=== PATIENT | female | born 1950 | race Caucasian/White ===

== ENCOUNTER 2017-05-17 09:00 | Inpatient (IN) | payer MEDICARE, MEDICAID ==
[~2017-05-17] VITALS: Ht 162.6 cm; Wt 89.5 kg
[2017-05-17] MEDS ORDERED: SODIUM CHLORIDE 0.9% 1,000 ML IV ONE ×2 (12:30→16:45)
[2017-05-17 13:00] LABS: HEMATOCRIT 24.3 % (36-46); HEMOGLOBIN 7.3 g/dL (12.0-16.0); MEAN CORPUSCULAR HEMOGLOBIN 18.6 pg (26.0-34.0); MEAN CORPUSCULAR HGB CONC 30.1 G/dL (31.0-37.0); MEAN CORPUSCULAR VOLUME 62 fL (80-100); PLATELET COUNT (AUTO) 250 K/uL (150-450); RED BLOOD CELL COUNT(AUTO) 3.94 MIL/uL (4.00-5.20); RED CELL DISTRIBUTION WIDTH 22.5 % (11.5-14.5)
[2017-05-17 13:19] LABS: B-TYPE NATRIURETIC PEPTIDE 66 pg/mL (0-100)
[2017-05-17 13:31] LABS: BAND NEUTROPHILS % (MANUAL) 9 % (1-5); LYMPHOCYTES % (MANUAL) 5 % (22-44); MONOCYTES % (MANUAL) 1 % (2-9); SEGMENTED NEUTROPHILS % 85 % (40-70)
[2017-05-17 13:32] LABS: ANION GAP 11 mmol/L (8-16); CALCIUM, TOTAL 8.4 mg/dL (8.8-10.5); CARBON DIOXIDE 22 mmol/L (22-29); CHLORIDE 97 mmol/L (98-107); GLOMERULAR FILTR. RATE CALC > 60 mL/min (>60); GLUCOSE,RANDOM 129 mg/dL (70-110); POTASSIUM 3.8 mmol/L (3.5-5.1); SODIUM SERUM 130 mmol/L (136-145); UREA NITROGEN, BLOOD 13 mg/dL (7-18)
[2017-05-17 13:36] LABS: ALANINE AMINOTRANSFERASE 95 U/L (12-78); ALBUMIN 2.2 g/dL (3.4-5.0); ALKALINE PHOSPHATASE 946 U/L (46-116); ASPARTATE AMINOTRANSFERASE 222 U/L (15-37); BILIRUBIN,TOTAL 5.4 mg/dL (0.1-1.0); TOTAL PROTEIN, SERUM 6.6 g/dL (6.4-8.2)
[2017-05-17 16:29] LABS: APPEARANCE,URINE CLOUDY (CLEAR); GLUCOSE, URINE (UA) NEGATIVE (NEGATIVE); KETONES,URINE 15 mg/dL (NEGATIVE); LEUKOCYTE ESTERASE ,URINE LARGE (NEGATIVE); NITRATE,URINE POSITIVE (NEGATIVE); OCCULT BLOOD,URINE NEGATIVE (NEGATIVE); PROTEIN,URINE NEGATIVE (NEGATIVE)
[2017-05-17 16:39] LABS: BILIRUBIN,URINE PRELIM. POSITIVE (NEGATIVE)
[2017-05-17 16:42] LABS: BACTERIA,URINE Many /HPF (None Seen)
[2017-05-17 16:43] LABS: RBC,URINE 0-2 /HPF (0-2)
[2017-05-17 16:44] LABS: SQUAMOUS EPITHELIAL CELL,UR Moderate /LPF (None Seen); TRANSITIONAL EPI CELLS,URINE Few /LPF (None Seen)
[2017-05-17] MEDS ORDERED: 0.9% SODIUM CHLORIDE 10 ML SYRINGE IVP PRN (16:45)
[2017-05-17] MEDS ORDERED: ONDANSETRON HCL 4 MG/2 ML VIAL IVP PRN (16:45)
[2017-05-17 17:03] LABS: INR 1.1 (0.9-1.1); PROTHROMBIN TIME 11.6 SEC (9.4-11.6)
[2017-05-17] MEDS ORDERED: CefTRIAXone 1 GM/DEXTROSE 50 ML IV ONE (18:00)
[2017-05-17 18:29] VITALS: BP 147/75
[2017-05-17] MEDS ORDERED: SODIUM CHLORIDE 0.9% 250 ML IV ONE (20:03)
[2017-05-17] MEDS: ACETAMINOPHEN 325 MG TABLET PO PRN (20:23)
[2017-05-17 21:24] VITALS: BP 132/78
[2017-05-18] VITALS (17 sets, daily range): BP systolic 126–150; BP diastolic 72–87
[2017-05-18] MEDS: ACETAMINOPHEN 325 MG TABLET PO PRN (02:15)
[2017-05-18 08:16] LABS: C-REACTIVE PROTEIN QUANT 15.12 mg/dL (0.00-0.30)
[2017-05-18 08:45] LABS: HEMATOCRIT 22.1 % (36-46); MEAN CORPUSCULAR HEMOGLOBIN 18.7 pg (26.0-34.0); MEAN CORPUSCULAR HGB CONC 30.7 G/dL (31.0-37.0); MEAN CORPUSCULAR VOLUME 61 fL (80-100); PLATELET COUNT (AUTO) 241 K/uL (150-450); RED BLOOD CELL COUNT(AUTO) 3.64 MIL/uL (4.00-5.20)
[2017-05-18 08:52] LABS: HEMOGLOBIN 6.8 g/dL (12.0-16.0)
[2017-05-18 08:59] LABS: PHOSPHORUS 2.8 mg/dL (2.5-4.9)
[2017-05-18 09:03] LABS: HEMOGLOBIN A1C 4.6 % (4.5-6.2)
[2017-05-18 09:11] LABS: CHOL/HDL RATIO 36.6 (3.9-5.7)
[2017-05-18 09:29] LABS: ERYTHROCYTE SEDIMENTATION RATE 52 MM/HR (0-20)
[2017-05-18 09:34] LABS: EOSINOPHILS % (MANUAL) 2 % (1-6); LYMPHOCYTES % (MANUAL) 6 % (22-44); MONOCYTES % (MANUAL) 6 % (2-9); SEGMENTED NEUTROPHILS % 86 % (40-70)
[2017-05-18] MEDS: PANTOPRAZOLE SODIUM 40 MG DR TABLET PO SCH (09:46)
[2017-05-18 09:48] LABS: INR 1.1 (0.9-1.1)
[2017-05-18] MEDS ORDERED: IOVERSOL 350 MG/ML 100 ML VIAL ONE (11:41)
[2017-05-18] MEDS: CefTRIAXone 1 GM/DEXTROSE 50 ML IV SCH (16:00)
[2017-05-18 16:01] LABS: % IRON SATURATION 5.2 % (22-44)
[2017-05-18] MEDS: OxyCODONE HCL 5 MG IR TABLET PO PRN (23:23)
[2017-05-19] VITALS (7 sets, daily range): BP systolic 122–149; BP diastolic 69–85
[2017-05-19 06:23] LABS: INR 1.1 (0.9-1.1)
[2017-05-19 06:56] LABS: ALANINE AMINOTRANSFERASE 81 U/L (12-78); ALBUMIN 1.7 g/dL (3.4-5.0); ALKALINE PHOSPHATASE 859 U/L (46-116); AMYLASE 18 U/L (25-115); ANION GAP 9 mmol/L (8-16); ASPARTATE AMINOTRANSFERASE 188 U/L (15-37); BILIRUBIN,TOTAL 7.3 mg/dL (0.1-1.0); CALCIUM, TOTAL 8.2 mg/dL (8.8-10.5); CARBON DIOXIDE 24 mmol/L (22-29); CHLORIDE 99 mmol/L (98-107); CREATININE 0.53 mg/dL (0.60-1.30); GLOMERULAR FILTR. RATE CALC > 60 mL/min (>60); GLUCOSE,RANDOM 85 mg/dL (70-110); PHOSPHORUS 3.3 mg/dL (2.5-4.9); POTASSIUM 3.8 mmol/L (3.5-5.1); SODIUM SERUM 132 mmol/L (136-145); TOTAL PROTEIN, SERUM 5.7 g/dL (6.4-8.2); UREA NITROGEN, BLOOD 11 mg/dL (7-18)
[2017-05-19] MEDS: CefTRIAXone 1 GM/DEXTROSE 50 ML IV SCH (09:25)
[2017-05-19] MEDS ORDERED: GADOBUTROL 1 MMOL/ML 10 ML VIAL IVP ONE (09:40)
[2017-05-19] MEDS: PANTOPRAZOLE SODIUM 40 MG DR TABLET PO SCH (11:16)
[2017-05-19] MEDS: OxyCODONE HCL 5 MG IR TABLET PO PRN ×2 (11:19→20:07)
[2017-05-19] MEDS ORDERED: SODIUM CHLORIDE 0.9% 1,000 ML IV ONE (14:30)
[2017-05-19] MEDS: LEVOFLOXACIN 500 MG/D5% WATER 100 ML IV SCH (16:22)
[2017-05-20 04:53] VITALS: BP 150/92
[2017-05-20] MEDS ORDERED: SODIUM CHLORIDE 0.9% 1,000 ML IV ONE (07:00)
[2017-05-20] MEDS ORDERED: SODIUM CHLORIDE 0.9% 1,000 ML IV SCH (07:00)
[2017-05-20 07:09] LABS: ANION GAP 10 mmol/L (8-16); CARBON DIOXIDE 25 mmol/L (22-29); CHLORIDE 99 mmol/L (98-107); CREATININE 0.61 mg/dL (0.60-1.30); GLOMERULAR FILTR. RATE CALC > 60 mL/min (>60); GLUCOSE,RANDOM 101 mg/dL (70-110); POTASSIUM 3.8 mmol/L (3.5-5.1); SODIUM SERUM 134 mmol/L (136-145); UREA NITROGEN, BLOOD 13 mg/dL (7-18)
[2017-05-20 07:19] LABS: HEMATOCRIT 25.4 % (36-46); HEMOGLOBIN 7.7 g/dL (12.0-16.0); MEAN CORPUSCULAR HEMOGLOBIN 20.3 pg (26.0-34.0); MEAN CORPUSCULAR HGB CONC 30.3 G/dL (31.0-37.0); MEAN CORPUSCULAR VOLUME 67 fL (80-100); PLATELET COUNT (AUTO) 213 K/uL (150-450); RED BLOOD CELL COUNT(AUTO) 3.78 MIL/uL (4.00-5.20); RED CELL DISTRIBUTION WIDTH 25.3 % (11.5-14.5)
[2017-05-20] MEDS ORDERED: MIDAZOLAM HCL 5 MG/ML VIAL ONE (07:42)
[2017-05-20] MEDS ORDERED: FentaNYL CITRATE-PF 100 MCG/2 ML VIAL ONE (07:42)
[2017-05-20] MEDS ORDERED: NALOXONE HCL 0.4 MG/ML VIAL ONE (07:43)
[2017-05-20] MEDS ORDERED: FLUMAZENIL 0.1 MG/ML 5 ML VIAL IVP ONE (07:43)
[2017-05-20] MEDS ORDERED: DiphenhydrAMINE HCL 50 MG/ML VIAL ONE (07:43)
[2017-05-20] MEDS ORDERED: EPINEPHrine 1:10,000 [1 MG/10 ML] SYRINGE ONE (07:43)
[2017-05-20] MEDS ORDERED: SODIUM TETRADECYL SULFATE 3% 60 MG/2 ML VIAL IVP ONE (07:43)
[2017-05-20 09:08] LABS: BAND NEUTROPHILS % (MANUAL) 6 % (1-5); LYMPHOCYTES % (MANUAL) 5 % (22-44); MONOCYTES % (MANUAL) 3 % (2-9); SEGMENTED NEUTROPHILS % 86 % (40-70)
[2017-05-20 09:25] VITALS: BP 139/72
[2017-05-20] MEDS: PANTOPRAZOLE SODIUM 40 MG DR TABLET PO SCH (10:44)
[2017-05-20 11:31] VITALS: BP 140/74
[2017-05-20] MEDS: LEVOFLOXACIN 500 MG/D5% WATER 100 ML IV SCH (14:13)
[2017-05-20] MEDS ORDERED: LEVO250 PO (14:19)
[2017-05-20 15:54] VITALS: BP 148/69
[2017-05-20 19:25] VITALS: BP 132/69
[2017-05-20] MEDS: OxyCODONE HCL 5 MG IR TABLET PO PRN (20:46)
[2017-05-20 23:21] VITALS: BP 141/79
[2017-05-21 05:30] VITALS: BP 139/65
[2017-05-21 06:39] LABS: HEMATOCRIT 24.6 % (36-46); HEMOGLOBIN 7.7 g/dL (12.0-16.0); MEAN CORPUSCULAR HEMOGLOBIN 20.9 pg (26.0-34.0); MEAN CORPUSCULAR HGB CONC 31.2 G/dL (31.0-37.0); MEAN CORPUSCULAR VOLUME 67 fL (80-100); PLATELET COUNT (AUTO) 210 K/uL (150-450); RED BLOOD CELL COUNT(AUTO) 3.68 MIL/uL (4.00-5.20); RED CELL DISTRIBUTION WIDTH 25.6 % (11.5-14.5)
[2017-05-21 07:34] VITALS: BP 130/64
[2017-05-21] MEDS: PANTOPRAZOLE SODIUM 40 MG DR TABLET PO SCH (08:04)
[2017-05-21 09:14] LABS: BAND NEUTROPHILS % (MANUAL) 6 % (1-5); LYMPHOCYTES % (MANUAL) 7 % (22-44); MONOCYTES % (MANUAL) 4 % (2-9); SEGMENTED NEUTROPHILS % 83 % (40-70)
[2017-05-21 11:46] VITALS: BP 133/69
[2017-05-21] MEDS: LEVOFLOXACIN 500 MG/D5% WATER 100 ML IV SCH (14:00)
[2017-05-21 15:25] VITALS: BP 129/65
[2017-05-21 20:02] VITALS: BP 133/72
== END 2017-05-21 20:55 | disposition home or self-care (01) | DRG 374 ==
LOC: EMS 09:01 → 5N 17:35 → 6N 05-18 16:30
PROVIDERS: ADMIT Hospitalist; ATTEND Hospitalist
PROC: 30233N1 Transfusion of Nonautologous Red Blood Cells into Peripheral Vein, Percutaneous Approach (ICD-10-PCS; 2017-05-18)
PROC: 0DB68ZX Excision of Stomach, Via Natural or Artificial Opening Endoscopic, Diagnostic (ICD-10-PCS; principal; 2017-05-20 08:00)
DX: C16.9 Malignant neoplasm of stomach, unspecified (principal); E43 Unspecified severe protein-calorie malnutrition; C85.90 Non-Hodgkin lymphoma, unspecified, unspecified site; E27.8 Other specified disorders of adrenal gland; I85.10 Secondary esophageal varices without bleeding; C78.7 Secondary malignant neoplasm of liver and intrahepatic bile duct; E87.1 Hypo-osmolality and hyponatremia; N39.0 Urinary tract infection, site not specified; B96.20 Unspecified Escherichia coli [E. coli] as the cause of diseases classified elsewhere; C72.9 Malignant neoplasm of central nervous system, unspecified; K80.10 Calculus of gallbladder with chronic cholecystitis without obstruction; R18.8 Other ascites; R53.1 Weakness; D50.9 Iron deficiency anemia, unspecified; K59.00 Constipation, unspecified; K74.60 Unspecified cirrhosis of liver; Z80.0 Family history of malignant neoplasm of digestive organs; Z88.5 Allergy status to narcotic agent; Z88.7 Allergy status to serum and vaccine
CPT/HCPCS: 36430; 72100; 74178; 74183; 76705; 80074; 82105; 82270; 82378; 83036; 83540; 83550; 83735; 84100; 85651; 86140; 86301; 86850; 86900; 86901; 86920; 87040; 87086; 88305; 88312; 88341; 88342; 93005; 93306; 93970; 96360; 96361; 97162; 97530; 99285; A9585; J0171; J0696; J1200; J1956; J2250; J2310; J3010; J3490; J7030; J7050; P9016